=== PATIENT | male | born 1960 | race Caucasian/White ===

== ENCOUNTER 2022-10-14 03:12 | Day surgery (SDC) | payer OTHER, SELFPAY ==
[2022-10-04 14:10] VITALS: BMI 30.6
[2022-10-14 07:48] VITALS: BP 143/84; PULSE 72; RESP 20; TEMP 36.2; O2SAT 98; BMI 29.3
[2022-10-14] MEDS: LACTATED RINGERS 1,000 ML 150 ML IV CONT (08:01)
--- NOTE | 2022-10-14 08:02 | P.HP_ITS ---
History of Present Illness History of Present Illness Consent: Risks, benefits, and alternatives have been discussed and questions answered. Patient agrees to proceed with procedure. Chief complaint: history of colon polyps Narrative: Arnulfo Moy is a 62 year old male Presents for colonoscopy. Patient has had previous colonoscopies. Multiple colon polyps have been found intermittently over the years. Previous exams were performed in [facility]. Patient reports that his current weight appetite and bowel movements are normal. He denies abdominal pain. He has had no bleeding. Family history noncontributory. Review of Systems Review of Systems: Review of systems noncontributory. [facility] Family History Family History (Updated 01/15/16 @ 15:48 by DOCTOR UNKNOWN) Other Diabetes mellitus Hypertension Social History Social History Years smoked: 10 Smoking status: Current every day smoker Tobacco type: cigarettes Alcohol intake: current Alcohol use details: rarely Substance use type: does not use Living arrangements: with family Spiritual care concerns: No Meds Home Medications and Allergies Home Medications Medication Instructions Recorded Confirmed Type atorvastatin 20 mg tablet 20 mg PO HS 10/04/22 10/14/22 History lisinopril 10 1 tablet PO DAILY 10/04/22 10/14/22 History mg-hydrochlorothiazide 12.5 mg tablet (Zestoretic) valacyclovir 500 mg tablet 500 mg PO DAILY 10/04/22 10/14/22 History Allergies Allergy/AdvReac Type Severity Reaction Status Date / Time No Known Allergies Allergy Verified 10/14/22 07:47 Vital Signs Vital Signs - 24 hr 10/14/22 07:48 Temperature 97.2 F L Pulse Rate 72 Respiratory Rate 20 Blood Pressure 143/84 H Pulse Oximetry 98 Oxygen Delivery Room Air Exam Narrative: Physical exam reveals patient to be alert. Vital signs stable. HEENT exam is unremarkable. Patient is anicteric. Lungs are clear to auscultation and percussion. Heart is without murmur or extra sounds. Abdomen bowel sounds present soft nontender with no organomegaly. Digital external rectal exam is normal. Assessment and Plan Assessment and plan (1) History of colon polyps: Code(s): Z86.010 - Personal history of colonic polyps Status: Acute Assessment and Plan: Patient has a history of colon polyps. Plan for surveillance colonoscopy now and consider this at 5 year intervals in the future.
--- NOTE | 2022-10-14 08:07 | P.PNAN_ITS ---
Anes - Initial Pre Proc Eval Procedure: Operation Date: 10/14/22 08:30 Proposed Procedures p Screening Colonoscopy - Chris Holden MD Date/Time: 10/14/22 08:07 Surgeon: Chris Holden MD Pre Op Diagnosis: history of colon polyps Patient Data Age: 62 Gender: M Height: 1.83 m Weight: 98.1 kg Last Vital Signs Temp 36.2 C L 10/14/22 07:48 Pulse 72 10/14/22 07:48 Resp 20 10/14/22 07:48 BP 143/84 H 10/14/22 07:48 Pulse Ox 98 10/14/22 07:48 O2 Del Method Room Air 10/14/22 07:48 Allergies Allergy/AdvReac Type Severity Reaction Status Date / Time No Known Allergies Allergy Verified 10/14/22 07:47 Home Medications Medication Instructions Recorded Confirmed Type atorvastatin 20 mg tablet 20 mg PO HS 10/04/22 10/14/22 History lisinopril 10 1 tablet PO DAILY 10/04/22 10/14/22 History mg-hydrochlorothiazide 12.5 mg tablet (Zestoretic) valacyclovir 500 mg tablet 500 mg PO DAILY 10/04/22 10/14/22 History Patient hx anesthesia problems: none Family hx anesthesia problems: none Results Review: All pre-operative results and documents have been reviewed as part of the pre- operative evaluation. [facility] Past Medical History Medical History (Updated 10/14/22 @ 08:08 by Cecilio Hooper MD) History of colon polyps HTN (hypertension) Hyperlipidemia Overweight (BMI 25.0-29.9) Family History Family History (Updated 01/15/16 @ 15:48 by DOCTOR UNKNOWN) Other Diabetes mellitus Hypertension Social History Social History Years smoked: 10 Smoking status: Current every day smoker Tobacco type: cigarettes Alcohol intake: current Alcohol use details: rarely Substance use type: does not use Living arrangements: with family Spiritual care concerns: No Anes - Eval Final PreProcedure Day of Procedure 10/14/22 08:07 Patient weight: overweight Heart: regular rate and rhythm Lungs: clear to auscultation and normal air movement Airway: Mallampati scale class II Neurological: alert and oriented Last oral intake: >/= 8 hours ASA classification: II Emergent: no Anesthetic plan: proceed Anesthesia type and monitoring: general GIVS Results Review: All pre-operative results and documents have been reviewed as part of the pre- operative evaluation. Informed Consent: The patient's anesthetic plan and its attendant risks and benefits were discussed with the patient/family/POA. Questions were solicited and answers provided to the satisfaction of the patient/family/POA.
[2022-10-14 08:55] VITALS: BP 109/68; PULSE 84; RESP 20; O2SAT 96
[2022-10-14 09:05] VITALS: BP 118/78; PULSE 65; RESP 18; O2SAT 97
[2022-10-14 09:15] VITALS: BP 121/77; PULSE 74; RESP 18; O2SAT 96
== END 2022-10-14 09:21 | disposition home or self-care (01) ==
PROVIDERS: PCP Nurse Practitioner Family; Visit Provider Internal Medicine Gastroenterology
PROC: 0DJD8ZZ Inspection of Lower Intestinal Tract, Via Natural or Artificial Opening Endoscopic (ICD-10-PCS; CPT 45378; principal; 2022-10-14 08:30)
DX: Z12.11 Encounter for screening for malignant neoplasm of colon (principal); K64.8 Other hemorrhoids; K57.30 Diverticulosis of large intestine without perforation or abscess without bleeding; Z86.010 Personal history of colon polyps; I10 Essential (primary) hypertension; E78.5 Hyperlipidemia, unspecified; F17.210 Nicotine dependence, cigarettes, uncomplicated
CPT/HCPCS: 45378; J2704; J7120

== ENCOUNTER 2023-02-19 11:07 | Emergency (ER) | payer OTHER, SELFPAY ==
[2023-02-19 11:19] VITALS: BP 140/85; PULSE 78; RESP 16; TEMP 36.8; O2SAT 96
--- NOTE | 2023-02-19 11:30 | ED.EYEPROB ---
HPI - Eye Problem General Chief complaint: Eye Problems Stated complaint: Right eye Time Seen by Provider: 02/19/23 11:30 Source: patient Mode of arrival: ambulatory Limitations: no limitations History of Present Illness HPI Narrative: Arnulfo is a 62-year-old male patient presenting to the clinic today with complaints right eye irritation and dysuria x 3 days. He states he is unsure if he had gotten something in his eye but feels as though something may be in his right upper eyelid. He denies any purulent discharge. He also reports he is having some burning with urination to the tip of his penis that occurred 3 days ago. No concern for any sexually transmitted infection or any history of prostate problems. Denies urinary frequency or urgency. Feels as though he completely empties when he voids. Related Data Home Medications Medication Instructions Recorded Confirmed atorvastatin 20 mg tablet 20 mg PO HS 10/04/22 02/19/23 lisinopril 10 1 tablet PO DAILY 10/04/22 02/19/23 mg-hydrochlorothiazide 12.5 mg tablet (Zestoretic) Allergies Allergy/AdvReac Type Severity Reaction Status Date / Time No Known Allergies Allergy Verified 02/19/23 11:23 Review of Systems Review of Systems: Pertinent positives per HPI. Patient denies any fever, chills, rash, headache, visual changes, dizziness, cough, runny nose, sore throat, shortness of breath, chest pain, palpitations, nausea, vomiting, diarrhea, constipation, abdominal pain, or any urinary issues. [facility] Past Medical History Medical History History of colon polyps HTN (hypertension) Hyperlipidemia Overweight (BMI 25.0-29.9) Family History Family History Other Diabetes mellitus Hypertension Social History Social History Years smoked: 10 Smoking status: Current every day smoker Tobacco type: cigarettes Alcohol intake: current Alcohol use details: rarely Substance use type: does not use Living arrangements: with family Spiritual care concerns: No Comments At the time of my signature, I reviewed and agree with the nursing past medical, surgical, social, and family history. There is no relevant family history pertinent to the patient complaint. Exam Narrative: General: Well-developed, well nourished, in no apparent distress Head: Normocephalic, atraumatic Eyes: Pupils equally round and reactive to light bilaterally, EOM intact, left sclera and conjunctive clear, right sclera and conjunctiva injected with watery discharge, no discharge to the left, lids normal, no obvious stye or foreign body in the right eye, Wood's lamp exam performed and is negative for any sign of corneal abrasion. Ears: TMs intact and clear, ear canals clear, no drainage, grossly hearing normal. Nose: Nares patent, no discharge, no inflammation, no sinus tenderness. Mouth: Oropharynx without lesions or masses, good dentition, MMM. Neck: Supple, trachea midline, no enlargement of anterior or posterior cervical nodes, no thyroid masses or goiter palpable. Cardio: Regular rate and rhythm, s1 and s2 normal, no murmur appreciated. Resp: Clear to auscultation bilaterally anteriorly and posteriorly, no rhonchi, rales, wheezing or rubs Abdomen: Soft, pliable, nondistended, bowel sounds present all 4 quadrants, nontender to palpation, no organomegaly, no CVAT tenderness : Glans penis without redness, swelling, lesion, or mass-redness and irritation around the urethra opening-no penile shaft lesions or masses, no scrotal masses or lesions Course Course Emergency Course: Portions of this record may have been created with voice recognition software. Level of Care: Express Care Visit Vital Signs Vital signs: Vital Signs Temperature 36.8 C 02/19/23 11:19 Pulse Rate 78
== END 2023-02-19 12:08 | disposition home or self-care (01) ==
PROVIDERS: Emergency Provider Nurse Practitioner Family
DX: H57.11 Ocular pain, right eye (principal); N34.2 Other urethritis; R30.0 Dysuria; R31.9 Hematuria, unspecified; F17.210 Nicotine dependence, cigarettes, uncomplicated; I10 Essential (primary) hypertension; E78.5 Hyperlipidemia, unspecified
CPT/HCPCS: 81003; 99213; A9270; G0463